=== PATIENT | male | born 1980 | race Caucasian/White ===

== ENCOUNTER 2017-05-29 15:36 | Inpatient (IN) | payer SELFPAY ==
[~2017-05-29] VITALS: Ht 177.8 cm; Wt 72.6 kg
[2017-05-29 15:38] VITALS: BP 107/70
--- NOTE | 2017-05-29 15:46 | NUR ---
Dr. Cook evaluating patient at bedside.
[2017-05-29] MEDS ORDERED: NACL 0.9% 1,000 ML IV ONE (15:55)
[2017-05-29] MEDS ORDERED: ONDANSETRON 4 MG/2 ML VIAL IVP ONE (15:55)
[2017-05-29 16:23] LABS: BASOPHILS # (AUTO) 0.2 K/uL (0.00-0.22); BASOPHILS % (AUTO) 1.6 % (0.0-2.0); EOSINOPHILS # (AUTO) 0.1 K/uL (0-0.4); EOSINOPHILS % (AUTO) 1.2 % (0.0-4.0); HEMATOCRIT 38.8 % (36-52); HEMOGLOBIN 13.4 g/dL (12.0-18.0); LYMPHOCYTES # (AUTO) 1.2 K/uL (2.0-11.5); LYMPHOCYTES % (AUTO) 10.7 % (20.5-51.1); MEAN CORPUSCULAR HEMOGLOBIN 30 pg (27-31); MEAN CORPUSCULAR HGB CONC 35 g/dL (33-37); MEAN CORPUSCULAR VOLUME 88 fL (80-94); MONOCYTES # (AUTO) 0.8 K/uL (0.8-1.0); MONOCYTES % (AUTO) 6.8 % (1.7-9.3); NEUTROPHILS # (AUTO) 8.8 K/uL (1.8-7.7); NEUTROPHILS % (AUTO) 79.7 % (42.2-75.2); PLATELET COUNT (AUTO) 309 K/uL (140-450); RED BLOOD CELL COUNT(AUTO) 4.43 MIL/uL (4.20-6.10); RED CELL DISTRIBUTION WIDTH 12.4 % (11.6-13.7); WHITE BLOOD COUNT (AUTO) 11.1 K/uL (4.8-10.8)
[2017-05-29 16:39] LABS: ANION GAP 11.3 (8-16); CARBON DIOXIDE 29.8 mmol/L (21-32); CHLORIDE 104 mmol/L (98-107); CREATININE 0.7 mg/dL (0.7-1.3); GFR ARICAN-AMERICAN 161 mL/min (>90); GLUCOSE 119 mg/dL (74-106); POTASSIUM 4.1 mmol/L (3.5-5.1); SODIUM SERUM 141 mmol/L (136-145); UREA NITROGEN, BLOOD 16 mg/dL (7-18)
[2017-05-29 16:46] LABS: ACETAMINOPHEN < 0.5 ug/ml (10-30); ALBUMIN 3.9 g/dL (3.4-5.0); ASPARTATE AMINOTRANSFERASE 75 U/L (15-37); SALICYLATE < 2.8 mg/dL (2.8-20.0); TOTAL BILIRUBIN 0.3 mg/dL (0.0-1.0)
[2017-05-29 17:19] LABS: APPEARANCE,URINE CLEAR (CLEAR); BILIRUBIN,URINE NEGATIVE (NEGATIVE); BLOOD, URINE NEGATIVE (NEGATIVE); COLOR,URINE YELLOW (YELLOW); LEUKOCYTE ESTERASE ,URINE NEGATIVE (NEGATIVE); NITRITE, URINE NEGATIVE (NEGATIVE); UGLUCOSE NEGATIVE (NEGATIVE)
[2017-05-29 17:27] LABS: BARBITURATE, URINE NEG. ng/ml (NEG <=200); BENZODIAZEPINE, URINE NEG. ng/mL (NEG <=200); CANNABINOID, URINE NEG. ng/mL (NEG <=50); COCAINE, URINE NEG. ng/mL (NEG <=300); OPIATE, URINE NEG. ng/mL (NEG <=2000); PHENCYCLIDINE SCREEN,URINE NEG. ng/mL (NEG <=25)
--- NOTE | 2017-05-29 17:50 | NUR ---
Pt BIB ambulance for spice overside. Pt has hx of drug use. Pt is a poor historian. AOx4, but slow to respond. Reactions were sluggish. Skin is intact, except for redness at bilateral heels. VSS. Breathing is even and unlabored. NAD
[2017-05-29] MEDS ORDERED: HYDROcodone/APAP 7.5/325 MG 1 TAB PO PRN (17:55)
[2017-05-29] MEDS ORDERED: ONDANSETRON 4 MG/2 ML VIAL IVP PRN (17:55)
[2017-05-29] MEDS ORDERED: ACETAMINOPHEN 325 MG TAB PO PRN (17:55)
--- NOTE | 2017-05-29 18:30 | NUR ---
PT ADMITTED TO UNIT. ARRIVED VIA GURNEY ACCOMPANIED BY RN AND TECH. PT AMBULATED TO BED WITH ASSIST. BEDSIDE REPORT GIVEN BY ER NURSE. TELE MONITOR APPLIED. MRSA SWAB OBTAINED. VS: TEMP 98.4 F, BP 129/83, HR 107, RR 18, O2 SAT 100% ON RA. PT IS AAOX4. ABLE TO COMMUNICATE. DENIES PAIN. NO SIGNS OF DISTRESS. IV TO LEFT HAND 20G. ORIENTED PT TO ROOM AND CALL LIGHT. PT VERBALIZED UNDERSTANDING. BED IN LOW POSITION, WHEELS LOCKED. WILL CONTINUE TO MONITOR.
--- NOTE | 2017-05-29 18:42 | NUR ---
Patient will be admitted to care of . Admited to TELE. Will go to room 107B. Belongings list completed. Report to NICOLÁS.
[2017-05-29] MEDS: NACL 0.9% 1,000 ML IV SCH (18:55)
[2017-05-29] MEDS ORDERED: LORazepam 2 MG/ML VIAL IVP PRN (19:00)
--- NOTE | 2017-05-29 19:18 | NUR ---
ENDORSED PT TO TALENT ACQUISITION ASSISTANT NURSE ELENA AT BEDSIDE FOR CONTINUITY OF CARE. PT IN STABLE CONDITION.
--- NOTE | 2017-05-29 19:30 | NUR ---
RECEIVED FROM AM RN IN BED SLEEPING AT THIS TIME. WAKES UP WHEN TOUCHED. ALERT AND ORIENTED X 3. ABLE TO VERBALIZE WELL IN [place]. CARE PLANS FOR THE NIGHT EXPLAINED. CALL LIGHT USE EXPLAINED. PT. WILL BE ADMITTED . IVF SITE TO #20. DX. OF ACUTE PSYCHOSIS SECONDARY TO SPICE USE. PT. POSTIVE FOR METH USE TOO.
[2017-05-29 20:13] VITALS: BP 104/74
[2017-05-29] MEDS: DOCUSATE SODIUM 100 MG GELCAP PO SCH (20:53)
[2017-05-29] MEDS: LORazepam 1 MG TAB PO SCH (20:53)
[2017-05-29 21:54] LABS: FREE T4 (FREE THYROXINE) 0.96 ng/dL (0.76-1.46); MAGNESIUM 2.2 mg/dL (1.8-2.4); PHOSPHORUS 4.7 mg/dL (2.5-4.9); THYROID STIMULATING HORMONE 1.34 uIU/mL (0.34-3.74)
--- NOTE | 2017-05-29 21:55 | NUR ---
PT. SLEEPING . REFUSED HIS P.O. MEDICATIONS FOR 2100. HELD RT WAKES UP AND THEN CLOSES EYES. WAKES UP WHEN TOUCHED BUT REFUSED TO OPEN EYES FOR A LONG TIME. PREFERS TO SLEEP.
--- NOTE | 2017-05-29 22:13 | NUR ---
MD BAUTISTA IN HERE TO SEE PT. /PSYCH PSS DELIVERY PROFESSIONAL. PT. SLEEPING. REFUSING TO TALK. MADE RESIDENT MD CLEARY AWARE OF ME HOLDING PT.S ATIVAN AND COLACE RT REFUSING TO OPEN MOUTH. PREFERS TO SLEEP. "OK" PER .
[2017-05-29 23:02] LABS: PROTHROMBIN TIME 9.9 secs (10.8-13.4)
--- NOTE | 2017-05-30 00:30 | NUR ---
ENDORSED TO THE NEXT RN FOR CONTINUITY OF CARE.
[2017-05-30] MEDS: NACL 0.9% 1,000 ML IV SCH ×2 (00:32→06:30)
--- NOTE | 2017-05-30 00:45 | NUR ---
RECEIVED REPORT FROM ELENA, PATIENT IS SLEEPING IN BED, RESPIRATION EVEN AND UNLABORED, NO S/S OF DISTRESS NOTED, IV PATENT AND INTACT, INFUSING NS AT 150ML/HR, CALL LIGHT WITHIN REACH, SAFETY MEASURE ENSURED, WILL CONTINUE TO MONITOR.
[2017-05-30 00:50] VITALS: BP 111/65
--- NOTE | 2017-05-30 03:11 | NUR ---
PATIENT IS SLEEPING, RESPIRATION EVEN AND UNLABORED, CALL LIGHT WITHIN REACH, SAFETY MEASURE ENSURED, WILL CONTINUE TO MONITOR.
[2017-05-30 04:00] VITALS: BP 124/88
[2017-05-30] MEDS: LORazepam 1 MG TAB PO SCH (04:50)
--- NOTE | 2017-05-30 05:15 | NUR ---
DUE MEDICATION GIVEN, PATIENT TOLERATED WELL. NO S/S OF DISTRESS NOTED, RESPIRATION EVEN AND UNLABORED, CALL LIGHT WITHIN REACH, SAFETY MEASURE ENSURED, WILL CONTINUE TO MONITOR.
--- NOTE | 2017-05-30 07:17 | NUR ---
ENDORSED PLAN OF CARE TO DAY SHIFT RN, PATIENT IS IN STABLE CONDITION, NO S/S OF DISTRESS NOTED.
--- NOTE | 2017-05-30 07:18 | NUR ---
RECEIVED REPORT FROM THE INTEGRATION SOFTWARE DEVELOPER NURSE AT BEDSIDE FOR CONTINUITY OF CARE. PT IS AWAKE AND ORIENTED. INTRODUCED MYSELF AND UPDATED THE BOARD. PT IS AMBULATORY. SKIN INTACT. LBM 05/29. IV ON L HAND 20G NS AT 150ML/HR INFUSING WELL. PLAN FOR TODAY: DOPPLER STUDIES ON BLE. V/S WITHIN NORMAL RANGE. DENIES PAIN. WILL CONTINUE TO MONITOR PT.
[2017-05-30 07:23] LABS: BASOPHILS # (AUTO) 0.2 K/uL (0.00-0.22); BASOPHILS % (AUTO) 2.4 % (0.0-2.0); EOSINOPHILS # (AUTO) 0.2 K/uL (0-0.4); EOSINOPHILS % (AUTO) 2.2 % (0.0-4.0); HEMATOCRIT 38.9 % (36-52); HEMOGLOBIN 13.3 g/dL (12.0-18.0); LYMPHOCYTES # (AUTO) 1.6 K/uL (2.0-11.5); LYMPHOCYTES % (AUTO) 19.6 % (20.5-51.1); MEAN CORPUSCULAR HEMOGLOBIN 31 pg (27-31); MEAN CORPUSCULAR HGB CONC 34 g/dL (33-37); MEAN CORPUSCULAR VOLUME 90 fL (80-94); MONOCYTES # (AUTO) 0.7 K/uL (0.8-1.0); MONOCYTES % (AUTO) 8.5 % (1.7-9.3); NEUTROPHILS # (AUTO) 5.2 K/uL (1.8-7.7); NEUTROPHILS % (AUTO) 67.3 % (42.2-75.2); PLATELET COUNT (AUTO) 284 K/uL (140-450); RED BLOOD CELL COUNT(AUTO) 4.35 MIL/uL (4.20-6.10); RED CELL DISTRIBUTION WIDTH 12.5 % (11.6-13.7); WHITE BLOOD COUNT (AUTO) 7.9 K/uL (4.8-10.8)
[2017-05-30 08:00] VITALS: BP 124/76
[2017-05-30] MEDS: DOCUSATE SODIUM 100 MG GELCAP PO SCH (08:46)
--- NOTE | 2017-05-30 08:50 | NUR ---
ADMINISTERED MORNING MEDS. PT TOLERATED WELL. PT WANTED TO KNOW IF HE WILL BE DC TODAY. EXPLAINED TO PT, I DON'T HAVE ORDERS OF YET. WILL ASK MD IF HE WILL BE D/C TODAY. WILL NOTIFY PT SOON I KNOW.
[2017-05-30] MEDS ORDERED: THIAMINE 100 MG TAB PO SCH (09:00)
[2017-05-30] MEDS ORDERED: NICOTINE TRANSD SYS 14 MG/24 HR PATCH TD SCH (09:00)
[2017-05-30] MEDS ORDERED: FOLIC ACID 1 MG TAB PO SCH (09:00)
[2017-05-30] MEDS ORDERED: PANTOPRAZOLE 40 MG INJ VIAL IVP SCH (09:00)
[2017-05-30] MEDS ORDERED: MULTIVITAMIN 1 TAB PO SCH (09:00)
[2017-05-30 09:23] LABS: ANION GAP 11.1 (8-16); CARBON DIOXIDE 26.9 mmol/L (21-32); CREATININE 0.7 mg/dL (0.7-1.3)
[2017-05-30 09:36] LABS: MAGNESIUM 2.1 mg/dL (1.8-2.4); PHOSPHORUS 3.3 mg/dL (2.5-4.9)
--- NOTE | 2017-05-30 09:39 | NUR ---
PATIENT HAS BEEN SCREENED AND CATEGORIZED LOW NUTRITION RISK. PATIENT WILL BE SEEN WITHIN 7 DAYS OF ADMISSION. 06/05/17 ELI BRUMFIELD MBA, RD
--- NOTE | 2017-05-30 09:40 | NUR ---
PT EXPLAINED HIS WISHES TO LEAVE. SPOKE TO PT HIS OPTIONS OF GOING AMA. SPOKE TO DR. BERNSTEIN. DR. BERNSTEIN CAME AND SPOKE TO PT EXTENSIVELY REGARDING LEAVING AGAINST MEDICAL ADVICE. PT VERBALIZED UNDERSTANDING. STILL WANTED TO SIGN PAPERS. PRINTED AMA FORM. PT SIGNED.
--- NOTE | 2017-05-30 09:54 | NUR ---
PT SIGNED THE AMA FORM, AGAINST DR. BERNSTEIN'S ADVISE. I REMOVED THE IV, CANNULA INTACT. NO BLEEDING NOTED. REMOVED ID BAND AND TELE MONITOR. PT WILL GET DRESSED AND WILL LEAVE.
--- NOTE | 2017-05-30 10:27 | NUR ---
ECHO CANCELLED. PATIENT LEFT AMA
== END 2017-05-30 10:00 | disposition left against medical advice (07) | DRG 896 ==
LOC: MED 15:36 → MTU 18:02
PROVIDERS: ADMIT Family Medicine; ATTEND Family Medicine
DX: F19.129 Other psychoactive substance abuse with intoxication, unspecified (principal); N17.0 Acute kidney failure with tubular necrosis; G92 Toxic encephalopathy; R74.0 Nonspecific elevation of levels of transaminase and lactic acid dehydrogenase [LDH]; F12.10 Cannabis abuse, uncomplicated; Z53.21 Procedure and treatment not carried out due to patient leaving prior to being seen by health care provider; R80.9 Proteinuria, unspecified; F15.10 Other stimulant abuse, uncomplicated; Z59.0 Homelessness
CPT/HCPCS: 36415; 70450; 71045; 80048; 80053; 80305; 81003; 82140; 82150; 83036; 83690; 83735; 83880; 84100; 84439; 84443; 84484; 85025; 85610; 85730; 87081; 93005; 93925; 93970; 96361; 96374; 99285; C1758; C9113; G0480; G0482; J2405; J7030; Q0092